=== PATIENT | female | born 1990 | race Caucasian/White ===

== ENCOUNTER 2016-12-02 14:03 | Emergency (ER) | payer OTHER ==
[2016-12-02] MEDS ORDERED: Ondansetron 4 MG/2 ML SDV IVPUSH ONE ×3 (14:44→20:17)
[2016-12-02] MEDS ORDERED: Sodium Chloride 0.9% 1,000 ML IV STA (14:44)
[2016-12-02] MEDS ORDERED: Sodium Chloride 0.9% 10 ML Syringe FLUSH PRN (14:44)
[2016-12-02] MEDS ORDERED: Lidocaine 1% 50 ML MDV INJECT ONE (14:51)
[2016-12-02] MEDS ORDERED: Sodium Chloride 0.9% 1,000 ML IV ONE (16:14)
--- NOTE | 2016-12-02 16:59 | EDM.PDOC ---
ED HPI GENERAL MEDICAL PROBLEM - General Chief Complaint: General Stated Complaint: CHILLS/NAUSEA Time Seen by Provider: 12/02/16 14:13 Source of Information: Reports: Patient History Limitations: Reports: No limitations - History of Present Illness INITIAL COMMENTS - FREE TEXT/NARRATIVE: The patient presents with an infected left index finger, nausea and vomiting. Over 1 week ago she removed a hang nail and developed some pain and redness after. That has increased and she was seen on Thursday at [facility] and a parynechia was drained and a culture was done that grew out staph that was susceptible to every antibiotic tested. She was started on Bactrim. Today she developed, fever, chills, nausea and vomiting. She has no chest pain, congestion, runny nose, cough, shortness of breath or abdominal pain. The finger is not better. Onset: gradual Duration: Week(s): Location: Reports: upper extremity, left (Index finger) Quality: Reports: Sharp Severity: moderate Improves with: Reports: None Worsens with: Reports: None Associated Symptoms: Reports: nausea/vomiting. 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: - Past Surgical History HEENT Surgical History: Reports: Oral surgery Female Surgical History: Reports: section Social & Family History - Family History Family Medical History: Noncontributory HEENT: Reports: None - Tobacco Use Smoking Status *Q: Never Smoker Second Hand Smoke Exposure: No - Recreational Drug Use Recreational Drug Use: No ED ROS GENERAL - Review of Systems Review Of Systems: See Below Constitutional: Reports: fever, chills HEENT: Reports: No symptoms Respiratory: Reports: No Symptoms Cardiovascular: Reports: No symptoms Endocrine: Reports: no symptoms GI/Abdominal: Reports: Nausea, Vomiting. Denies: Abdominal pain : Reports: no symptoms Musculoskeletal: Reports: no symptoms Skin: Reports: no symptoms Neurological: Reports: No Symptoms ED EXAM, GENERAL - Physical Exam Exam: See Below Exam Limited By: No limitations General Appearance: alert, no apparent distress Ears: normal external exam Nose: normal inspection Head: atraumatic, normocephalic Neck: normal inspection Respiratory/Chest: no respiratory distress, lungs clear, normal breath sounds Cardiovascular: regular rate, rhythm, no edema, no murmur GI/Abdominal: Soft, Non-Tender, No Organomegaly, No Mass Back Exam: normal inspection Extremities: other (Moderate edema and erythema to the base of the nail of the left index finger. There is moderate pain upon palpation.) ED I&D PROCEDURES - I&D Site: Left infex finger Skin prep: other (Chlorprep) Local anesthesia - Lidocaine (Xylocaine): 1% plain (and I attempted a ring block ) Area incised with: 11 blade Drainage: purulent Probed to break up loculations: Yes Complications: No Progress/Comments: I could not achieve optimal anaesthesia with a ring block and local anaesthetic so I did procedural sedation and analgesia. I used ketamine at 2mg/kg IV. I was able to sedate her enough to do the procedure. Course - Vital Signs Last Recorded V/S: Last Vital Signs Temp 98.6 F 12/02/16 14:10 Pulse 75 12/02/16 14:10 Resp 18 12/02/16 14:10 BP 127/63 12/02/16 14:10 Pulse Ox 99 12/02/16 14:10 - Orders/Labs/Meds Orders: Active Orders 24 hr Category Date Time Status Peripheral IV Care [RC] . DIRECTED Care 12/02/16 14:44 Active Fingers Second Digit Lt F1 [CR] Stat Exams 12/02/16 14:47 Taken CULTURE BLOOD [BC] Stat Lab 12/02/16 15:08 Received CULTURE BLOOD [BC] Stat Lab 12/02/16 15:16 Received Sodium Chloride 0.9% [Saline Flush] Med 12/02/16 14:44 Active 10 ml FLUSH ASDIRECTED PRN Blood Culture x2 Reflex Set [OM.PC] Stat Oth 12/02/16 14:44 Ordered ED Antiemetic Medication Reflex [OM.PC] Stat Oth 12/02/16 14:44 Ordered Peripheral IV Insertion Adult [OM.PC] Stat Oth 12/02/16 14:44 Ordered Medication Orders Sodium Chloride (Saline Flush) 10 ml FLUSH ASDIRECTED PRN PRN Reason: Keep Vein Open Last Admin: 12/02/16 15:12 Dose: 10 ml Labs: Laboratory Tests 12/02/16 12/02/16 12/02/16 Range/Units 15:08 15:08 15:08 WBC 5.57 (3.98-10.04) K/mm3 RBC 4.53 (3.98-5.22) M/mm3 Hgb 13.3 (11.2-15.7) gm/L Hct 39.1 (34.1-44.9) % MCV 86.3 (79.4-94.8) fl MCH 29.4 (25.6-32.2) pg MCHC 34.0 (32.2-35.5) g/dl RDW Std Deviation 39.8 (36.4-46.3) fL Plt Count 214 (182-369) K/mm3 MPV 11.3 (9.4-12.3) fl Neut % (Auto) 54.8 (34.0-71.1) % Lymph % (Auto) 33.0 (19.3-51.7) % [place] % (Auto) 7.7 (4.7-12.5) % Eos % (Auto) 3.9 (0.7-5.8) Baso % (Auto) 0.4 (0.1-1.2) % Neut # (Auto) 3.05 (1.56-6.13) K/mm3 Lymph # (Auto) 1.84 (1.18-3.74) K/mm3 [place]th # (Auto) 0.43 H (0.24-0.36) K/mm3 Eos # (Auto) 0.22 (0.04-0.36) K/mm3 Baso # (Auto) 0.02 (0.01-0.08) K/mm3 Sodium 136 (136-145) mEq/L Potassium 4.1 (3.5-5.1) mEq/L Chloride 105 (98-107) mEq/L Carbon Dioxide 22 (21-32) mEq/L Anion Gap 13.1 (5-15) BUN 16 (7-18) mg/dL Creatinine 1.0 (0.55-1.02) mg/dL Est Cr Clr Drug Dosing TNP Estimated GFR (MDRD) > 60 (>60) mL/min BUN/Creatinine Ratio 16.0 (14-18) Glucose 98 (74-106) mg/dL Calcium 8.7 (8.5-10.1) mg/dL Total Bilirubin 0.3 (0.2-1.0) mg/dL AST 19 (15-37) U/L ALT 17 (14-59) U/L Alkaline Phosphatase 94 (46-116) U/L C-Reactive Protein 1.2 H* (<1.0) mg/dL Total Protein 7.4 (6.4-8.2) g/dl Albumin 3.7 (3.4-5.0) g/dl Globulin 3.7 gm/dL Albumin/Globulin Ratio 1.0 (1-2) HCG, Qual Negative (NEGATIVE) Meds: Medications Generic Name Dose Route Start Last Admin Trade Name Frejayde PRN Reason Stop Dose Admin Sodium Chloride 10 ml 12/02/16 14:44 12/02/16 15:12 Saline Flush FLUSH 10 ml ASDIRECTED PRN Administration Keep Vein Open Discontinued Medications Generic Name Dose Route Start Last Admin Trade Name Freq PRN Reason Stop Dose Admin Hydromorphone HCl 1 mg 12/02/16 17:55 12/02/16 18:01 Dilaudid IVPUSH 12/02/16 17:56 1 mg ONETIME ONE Administration Sodium Chloride 1,000 mls @ 1,000 mls/hr 12/02/16 14:44 12/02/16 15:11 Normal Saline IV 12/02/16 15:43 1,000 mls/hr .BOLUS STA Administration Sodium Chloride 1,000 mls @ 1,000 mls/hr 12/02/16 16:14 12/02/16 16:24 Normal Saline IV 12/02/16 17:13 1,000 mls/hr ONETIME ONE Administration Ceftriaxone Sodium 1 gm/ 100 mls @ 200 mls/hr 12/02/16 17:33 12/02/16 18:35 Sodium Chloride IV 12/02/16 18:02 200 mls/hr ONETIME ONE Administration Ketamine HCl 220 mg 12/02/16 18:36 12/02/16 19:00 Ketalar IV 12/02/16 18:37 220 mg ONETIME ONE Administration Lidocaine HCl 50 ml 12/02/16 14:51 12/02/16 15:12 Xylocaine 1% INJECT 12/02/16 14:52 50 ml ONETIME ONE Administration Ondansetron HCl 4 mg 12/02/16 14:44 12/02/16 15:11 Zofran IVPUSH 12/02/16 14:45 4 mg ONETIME ONE Administration Ondansetron HCl 4 mg 12/02/16 18:35 12/02/16 18:54 Zofran IVPUSH 12/02/16 18:36 4 mg ONETIME ONE Administration - Re-Assessments/Exams Free Text/Narrative Re-Assessment/Exam: 12/02/16 19:30 I ordered an IV NS 1L bolus, zofran 4mg IV, labs, blood cultures, rocephin and an x-ray. Her x-ray does not show any osteomyolitis. Her WBC was normal. Her CRP was slightly elevated. I could not get her finger anaesthetized enough to do the procedure so I used 220mg of ketamine to sedate her. She tolerated the procedure well and there were no complications. She did start her control pills yesterday and she is taking the antibiotic. This could be upsetting her stomach. Culture and susceptibility from [place] showed staph aureus susceptible to the bactrim she is on. I will keep her on that and give her some zofran. She is waking up now and she is a little nauseated. I will give her some reglan 10mg IV. I will have her follow up with Dr Sauceda. I gave him a call to let him know she is going to follow up. Departure - Departure Time of Disposition: 19:40 Disposition: Home, Self-Care 01 Condition: good Clinical Impression: Paronychia of finger of left hand - Discharge Information Prescriptions: Ondansetron [Zofran ODT] 4 mg PO Q6H PRN #20 tab.dis PRN Reason: Nausea/Vomiting Referrals: Je Sauceda MD [Physician] - (Call tomorrow and make an appointment) Forms: ED Department Discharge Additional Instructions: Soak your finger in warm soapy water 2 times per day and apply antibiotic ointment after. Take the antibiotics until gone. Take the zofran every 6 hours as needed for nausea and vomiting. Drink plenty of fluids. Please return if you are worse. 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 Call his office tomorrow and let them know he wants to see you this week. - My Orders Last 24 Hours: My Active Orders 12/02/16 14:44 Peripheral IV Care [RC] . DIRECTED Sodium Chloride 0.9% [Saline Flush] 10 ml FLUSH ASDIRECTED PRN Blood Culture x2 Reflex Set [OM.PC] Stat ED Antiemetic Medication Reflex [OM.PC] Stat Peripheral IV Insertion Adult [OM.PC] Stat 12/02/16 14:47 Fingers Second Digit Lt F1 [CR] Stat 12/02/16 15:08 CULTURE BLOOD [BC] Stat 12/02/16 15:16 CULTURE BLOOD [BC] Stat - Assessment/Plan Last 24 Hours: My Active Orders 12/02/16 14:44 Peripheral IV Care [RC] . DIRECTED Sodium Chloride 0.9% [Saline Flush] 10 ml FLUSH ASDIRECTED PRN Blood Culture x2 Reflex Set [OM.PC] Stat ED Antiemetic Medication Reflex [OM.PC] Stat Peripheral IV Insertion Adult [OM.PC] Stat 12/02/16 14:47 Fingers Second Digit Lt F1 [CR] Stat 12/02/16 15:08 CULTURE BLOOD [BC] Stat 12/02/16 15:16 CULTURE BLOOD [BC] Stat
[2016-12-02] MEDS ORDERED: cefTRIAXone 1 GM in Sodium Chloride 0.9% 100 ML IV ONE (17:33)
[2016-12-02] MEDS ORDERED: HYDROmorphone 1 MG/ML Syringe IVPUSH ONE (17:55)
[2016-12-02] MEDS ORDERED: Ketamine 500 mg/10 ML MDV IV ONE (18:36)
[2016-12-02] MEDS ORDERED: Metoclopramide 10 MG/2 ML SDV IVPUSH ONE ×2 (19:39→21:37)
[2016-12-02 22:16] VITALS: BP 109/61
--- NOTE | 2016-12-03 08:28 | CR ---
Left second finger: Four portable views centered to the left second finger were obtained. Comparison: No previous study. Joint spaces are maintained. No focal erosions are identified. No fracture or other bony abnormality is seen. Mild soft tissue swelling appears to be present. Impression: 1. Mild soft tissue swelling. No bony abnormality is identified on left second finger exam. Diagnostic code #2
== END 2016-12-02 22:10 | disposition home or self-care (01) ==
LOC: SUPCPDRO 14:03 → JD.ED 14:03
DX: L03.012 Cellulitis of left finger (principal)
CPT/HCPCS: 10060; 36415; 64450; 73140; 80053; 84703; 85025; 86140; 87040; 96361; 96365; 96375; 96376; 99284; A9270; J0696; J1170; J2405; J2765; J7030; J7040; J7050

== ENCOUNTER 2018-04-12 16:53 | Inpatient (IN) | payer OTHER ==
[2018-04-13] MEDS ORDERED: Sodium Chloride 0.9% 10 ML Syringe FLUSH PRN (05:30)
[2018-04-13] MEDS ORDERED: ceFAZolin 2 GM in Premix Bag 1 BAG IV ONE (06:00)
[2018-04-13] MEDS ORDERED: Metoclopramide 10 MG/2 ML SDV IVPUSH ONE (06:00)
[2018-04-13] MEDS ORDERED: Citric Acid/Sodium Citrate Solution 30 ML Cup PO ONE (06:00)
[2018-04-13] MEDS: Lactated Ringers 1,000 ML IV SCH ×2 (06:15→07:06)
[2018-04-13] MEDS ORDERED: Ondansetron 4 MG/2 ML SDV ONE (06:56)
[2018-04-13] MEDS ORDERED: Ketorolac 30 MG/ML SDV ONE (06:56)
[2018-04-13] MEDS ORDERED: Lactated Ringers 2,000 ML ONE (06:56)
[2018-04-13] MEDS ORDERED: Phenylephrine 1% 10 MG/ML SDV ONE (06:56)
[2018-04-13] MEDS ORDERED: ceFAZolin 1 GM Vial ONE (06:56)
[2018-04-13] MEDS ORDERED: Oxytocin 10 Units/1 ML SDV ONE (06:56)
[2018-04-13] MEDS ORDERED: Morphine PF 10 MG/10 ML SDV ONE (06:56)
[2018-04-13] MEDS ORDERED: Oxytocin/Lactated Ringers 10 UNIT/1,000 ML BAG IV SCH (07:00)
--- NOTE | 2018-04-13 07:19 | PCM.PREANE ---
Preanesthetic Assessment - Anesthesia/Transfusion/Family Hx Anesthesia History: Prior Anesthesia Reaction Type of Anesthesia Reaction: Excessive Nausea/Vomiting Family History of Anesthesia Reaction: No Transfusion History: No Prior Transfusion(s) Intubation History: Unknown - Review of Systems General: No Symptoms Pulmonary: No Symptoms Cardiovascular: No Symptoms Gastrointestinal: No Symptoms Neurological: No Symptoms Other: Reports: None, Sinus Problem (seasonal allergies) - Physical Assessment NPO Status Date: 04/12/18 NPO Status Time: 20:30 Pulse: 71 O2 Sat by Pulse Oximetry: 99 Respiratory Rate: 17 Blood Pressure: 129/67 Temperature: 36.8 C Vital Signs: Last Vital Signs Temp 36.8 C 04/13/18 05:30 Pulse 71 04/13/18 05:30 Resp 17 04/13/18 05:30 BP 129/67 04/13/18 05:30 Pulse Ox 99 04/13/18 05:30 Height: 1.78 m Weight: 108.499 kg ASA Class: 2 Mental Status: Alert & Oriented x3 Airway Class: Mallampati = 2 Dentition: Reports: Normal Dentition, Caries Thyro-Mental Finger Breadths: 3 Mouth Opening Finger Breadths: 3 ROM/Head Extension: Full Lungs: Clear to Auscultation, Normal Respiratory Effort Cardiovascular: Regular Rate, Regular Rhythm, No Murmurs - Lab Values: Laboratory Last Values WBC 10.21 K/mm3 (3.98-10.04) H 04/13/18 06:27 RBC 3.65 M/mm3 (3.98-5.22) L 04/13/18 06:27 Hgb 11.4 gm/L (11.2-15.7) 04/13/18 06:27 Hct 33.5 % (34.1-44.9) L 04/13/18 06:27 MCV 91.8 fl (79.4-94.8) 04/13/18 06:27 MCH 31.2 pg (25.6-32.2) 04/13/18 06:27 MCHC 34.0 g/dl (32.2-35.5) 04/13/18 06:27 RDW Std Deviation 42.9 fL (36.4-46.3) 04/13/18 06:27 Plt Count 155 K/mm3 (182-369) L 04/13/18 06:27 MPV 11.5 fl (9.4-12.3) 04/13/18 06:27 Neut % (Auto) 71.6 % (34.0-71.1) H 04/13/18 06:27 Lymph % (Auto) 17.8 % (19.3-51.7) L 04/13/18 06:27 [place] % (Auto) 9.0 % (4.7-12.5) 04/13/18 06:27 Eos % (Auto) 1.2 (0.7-5.8) 04/13/18 06:27 Baso % (Auto) 0.1 % (0.1-1.2) 04/13/18 06:27 Neut # (Auto) 7.31 K/mm3 (1.56-6.13) H 04/13/18 06:27 Lymph # (Auto) 1.82 K/mm3 (1.18-3.74) 04/13/18 06:27 [place] # (Auto) 0.92 K/mm3 (0.24-0.36) H 04/13/18 06:27 Eos # (Auto) 0.12 K/mm3 (0.04-0.36) 04/13/18 06:27 Baso # (Auto) 0.01 K/mm3 (0.01-0.08) 04/13/18 06:27 Above labs reviewed and noted and within acceptable ranges to proceed with repeat . - Allergies Allergies/Adverse Reactions: Allergies Allergy/AdvReac Type Severity Reaction Status Date / Time ENVIROMENTAL Allergy Mild Sneezing Uncoded 04/13/18 06:09 pet dander Allergy Hives Uncoded 04/13/18 06:10 - Anesthesia Plan Pre-Op Medication Ordered: None - Acknowledgements Anesthesia Type Planned: Spinal Pt an Appropriate Candidate for the Planned Anesthesia: Yes Alternatives and Risks of Anesthesia Discussed w Pt/Guardian: Yes Pt/Guardian Understands and Agrees with Anesthesia Plan: Yes PreAnesthesia Questionnaire - Past Health History Medical/Surgical History: Denies Medical/Surgical History HEENT History: Reports: Other (See Below) Other HEENT History: areli bullosa Cardiovascular History: Reports: None 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 surgery on left index finger in 2018. - Infectious Disease History Infectious Disease History: Reports: MRSA - Past Surgical History HEENT Surgical History: Reports: Oral Surgery Female Surgical History: Reports: Section - SUBSTANCE USE Smoking Status *Q: Never Smoker Recreational Drug Use History: No - HOME MEDS Home Medications: Home Meds Cetirizine [ZyrTEC] 12/02/16 [History] Ondansetron [Zofran ODT] 4 mg PO Q6H PRN #20 tab.dis 12/02/16 [Rx] Sulfamethoxazole/Trimethoprim [Bactrim Ds Tablet] 12/02/16 [History] - CURRENT (IN HOUSE) MEDS Current Meds: Current Medications Lactated Ringer's (Ringers, Lactated) 1,000 mls @ 125 mls/hr IV ASDIRECTED SAIDA Last Admin: 04/13/18 07:06 Dose: 999 mls/hr Oxytocin/Lactated Ringer's (Pitocin In Lr 10 Units/1,000 Ml) 10 unit in 1,000 mls @ 100 mls/hr IV ASDIRECTED SAIDA; Protocol Sodium Chloride (Saline Flush) 10 ml FLUSH ASDIRECTED PRN PRN Reason: Keep Vein Open Discontinued Medications Cefazolin Sodium (Ancef) Confirm Administered Dose 2 gm .ROUTE .STK-MED ONE Stop: 04/13/18 06:57 Citric Acid/Sodium Citrate (Bicitra Solution) 30 ml PO ONETIME ONE Stop: 04/13/18 06:01 Last Admin: 04/13/18 07:06 Dose: 30 ml Cefazolin Sodium/Dextrose 2 gm (/ Premix) 50 mls @ 100 mls/hr IV ONETIME ONE Stop: 04/13/18 06:29 Lactated Ringer's (Ringers, Lactated) Confirm Administered Dose 2,000 mls @ as directed .ROUTE .STK-MED ONE Stop: 04/13/18 06:57 Ketorolac Tromethamine (Toradol) Confirm Administered Dose 30 mg .ROUTE .STK- MED ONE Stop: 04/13/18 06:57 Metoclopramide HCl (Reglan) 10 mg IVPUSH ONETIME ONE Stop: 04/13/18 06:01 Last Admin: 04/13/18 07:06 Dose: 10 mg Morphine Sulfate (Duramorph Pf) Confirm Administered Dose 10 mg .ROUTE .STK-MED ONE Stop: 04/13/18 06:57 Ondansetron HCl (Zofran) Confirm Administered Dose 4 mg .ROUTE .STK-MED ONE Stop: 04/13/18 06:57 Oxytocin (Pitocin) Confirm Administered Dose 10 unit .ROUTE .STK-MED ONE Stop: 04/13/18 06:57 Phenylephrine HCl (Ehsan-Synephrine) Confirm Administered Dose 10 mg .ROUTE .STK- MED ONE Stop: 04/13/18 06:57
--- NOTE | 2018-04-13 07:26 | PCM.OPNOTE ---
- General Post-Op/Procedure Note Date of Surgery/Procedure: 04/13/18 Operative Procedure(s): Repeat low transverse Findings: Moderate amounts of scar tissue between the rectus and fascia. Several filmy adhesions between the uterine surface and anterior abdominal wall. Baby girl in a vertex presentation. APGARS of 8 & 9. Weight of 6 lbs 7 oz. Pre Op Diagnosis: 40 weeks gestation. History of Post-Op Diagnosis: S/p RLTCS Anesthesia Technique: Spinal Primary Surgeon: Fang Murphy Secondary Surgeon: Brandie Ashby Anesthesia Provider: Shahrzad Moreno Reason Ecd Was Necessary: Speed and safety of procedure. Pathology: Cord blood collected. Placenta discarded. Fluid Replacement, Intraop: 800 Output, Urine Amount: 150 EBL in mLs: 600 Complications: None Condition: Good Free Text/Narrative:: The risks, benefits, indications, potential complications, and alternatives were explained to the patient and informed consent obtained. After induction of anesthesia, the patient was placed in a supine position and then draped and prepped in the usual sterile manner. A Pfannenstiel incision was made and carried down through the subcutaneous tissue to the fascia. Fascial incision was made and extended transversely. The fascia was from the underlying rectus tissue superiorly and inferiorly. The peritoneum was identified and entered. Peritoneal incision was extended longitudinally. The utero-vesical peritoneal reflection was incised transversely and the bladder flap was bluntly freed from the lower uterine segment. A low transverse uterine incision was made sharply with a scalpel and extended bluntly in a cephalocaudad direction. A baby girl was delivered from a vertex presentation with APGARS as above. After the umbilical cord was clamped and cut cord blood was obtained for evaluation. The placenta was removed intact and appeared normal. The uterus was exteriorized and cleared of clots. The uterine outline, tubes and ovaries appeared normal. The uterine incision was closed with running locked sutures of 0 Vicryl. Hemostasis was obtained with a second imbricating layer of 0 vicryl. The uterus was then placed back into the abdomen. The infracolic gutters were cleared of blood clots. The fascia was then reapproximated with running sutures of 0 Vicryl. The sucutaneous tissue was irrigated with sterile warm normal saline, hemostasis obtained with cautery. This layer was also closed with a running 0 vicryl. The skin was reapproximated with running Subcuticular 4-0 monocryl sutures. Instrument, sponge, and needle counts were correct prior the abdominal closure and at the conclusion of the case.
[2018-04-13] MEDS ORDERED: Lidocaine 1% 2 ML ONE ×2 (07:51)
[2018-04-13] MEDS ORDERED: Bupivacaine 0.75%/D5W 2 ML Amp ONE (07:51)
[2018-04-13] MEDS ORDERED: Dexamethasone 4 MG/ML SDV ONE (08:02)
[2018-04-13] MEDS ORDERED: diphenhydrAMINE 50 MG/ML SDV ONE (08:02)
[2018-04-13] MEDS: Scopolamine 1.5 MG Transdermal Patch TRDERM ONE ×2 (08:04→11:03)
[2018-04-13] MEDS ORDERED: Ondansetron 4 MG/2 ML SDV IVPUSH PRN (08:07)
[2018-04-13] MEDS ORDERED: Haloperidol Lactate 5 MG/ML SDV IVPUSH PRN (08:07)
[2018-04-13] MEDS ORDERED: Meperidine 50 MG/ML Vial IVPUSH PRN (08:07)
[2018-04-13] MEDS ORDERED: fentaNYL 100 MCG/2 ML SDV IVPUSH PRN (08:07)
[2018-04-13] MEDS ORDERED: ePHEDrine 50 MG/ML SDV IVPUSH PRN ×2 (08:07→10:21)
[2018-04-13] MEDS ORDERED: HYDROmorphone 0.5 MG/0.5 ML Syringe IVPUSH PRN (08:09)
[2018-04-13] MEDS ORDERED: Meperidine PF 50 MG/ML Syringe ONE (08:13)
[2018-04-13] MEDS ORDERED: Phenylephrine 1 MG in Sodium Chloride 0.9% 10 ML IV SCH (08:15)
--- NOTE | 2018-04-13 08:48 | PCM.POSTAN ---
POST ANESTHESIA ASSESSMENT - MENTAL STATUS Mental Status: Alert - VITAL SIGNS Pulse Rate: 57 SaO2: 97 Resp Rate: 13 Blood Pressure: 113/65 Temperature: 36.9 C - RESPIRATORY Respiratory Status: Respiratory Rate WNL, Airway Patent, O2 Saturation Stable - CARDIOVASCULAR CV Status: Pulse Rate WNL, Blood Pressure Stable - GASTROINTESTINAL GI Status: No Symptoms - POST OP HYDRATION Hydration Status: Adequate & Stable
[2018-04-13] MEDS ORDERED: Lanolin 100% Cream 7 GM Tube TOP PRN (10:21)
[2018-04-13] MEDS ORDERED: Docusate Sodium 100 MG Cap PO PRN (10:21)
[2018-04-13] MEDS ORDERED: Acetaminophen/oxyCODONE 325-5 MG Tab PO PRN (10:21)
[2018-04-13] MEDS ORDERED: diphenhydrAMINE 50 MG/ML SDV IVPUSH PRN (10:21)
[2018-04-13] MEDS ORDERED: Naloxone 0.4 MG/ML SDV IVPUSH PRN (10:21)
[2018-04-13] MEDS: Dextrose 5%-Lactated Ringers 1,000 ML IV SCH (12:13)
[2018-04-13] MEDS: Ketorolac 30 MG/ML SDV IVPUSH SCH ×2 (15:00→21:17)
[2018-04-14] MEDS: Ketorolac 30 MG/ML SDV IVPUSH SCH (03:41)
--- NOTE | 2018-04-14 07:16 | PCM.PNPP ---
- General Info Date of Service: 04/14/18 Functional Status: Reports: Pain Controlled, Tolerating Diet, Ambulating - Review of Systems General: Reports: No Symptoms Pulmonary: Reports: No Symptoms Cardiovascular: Reports: No Symptoms Gastrointestinal: Reports: No Symptoms Genitourinary: Reports: No Symptoms Musculoskeletal: Reports: No Symptoms - Patient Data Vital Signs - Most Recent: Last Vital Signs Temp 36.7 C 04/14/18 03:46 Pulse 69 04/14/18 03:46 Resp 18 04/14/18 06:54 BP 127/62 04/14/18 03:46 Pulse Ox 97 04/14/18 06:54 Weight - Most Recent: 108.499 kg I&O - Last 24 Hours: Intake & Output 04/13/18 04/14/18 04/14/18 22:59 06:59 14:59 Intake Total 1240 Output Total 1100 1450 Balance 140 -1450 Lab Results - Last 24 Hours: Laboratory Results - last 24 hr 04/13/18 04/13/18 04/13/18 Range/Units 06:10 06:27 06:27 WBC (3.98-10.04) K/mm3 RBC (3.98-5.22) M/mm3 Hgb (11.2-15.7) gm/L Hct (34.1-44.9) % MCV (79.4-94.8) fl MCH (25.6-32.2) pg MCHC (32.2-35.5) g/dl RDW Std Deviation (36.4-46.3) fL Plt Count (182-369) K/mm3 MPV (9.4-12.3) fl RPR Non-reactive (NONREACTIVE) MRSA (PCR) Negative Blood Type O NEGATIVE Gel Antibody Screen Negative 04/14/18 Range/Units 05:58 WBC 10.97 H (3.98-10.04) K/mm3 RBC 3.10 L (3.98-5.22) M/mm3 Hgb 9.6 L (11.2-15.7) gm/L Hct 29.1 L (34.1-44.9) % MCV 93.9 (79.4-94.8) fl MCH 31.0 (25.6-32.2) pg MCHC 33.0 (32.2-35.5) g/dl RDW Std Deviation 44.5 (36.4-46.3) fL Plt Count 137 L (182-369) K/mm3 MPV 12.0 (9.4-12.3) fl RPR (NONREACTIVE) MRSA (PCR) Blood Type Gel Antibody Screen Med Orders - Current: Current Medications Diphenhydramine HCl (Benadryl) 25 mg IVPUSH Q6H PRN PRN Reason: Itching or Nausea Docusate Sodium (Colace) 100 mg PO Q12H PRN PRN Reason: Constipation Emollient Ointment (Lansinoh Hpa) 0 gm TOP ASDIRECTED PRN PRN Reason: Sore Nipples Last Admin: 04/13/18 15:57 Dose: 1 tube Ephedrine Sulfate (Ephedrine Sulfate) 5 mg IVPUSH SEECOMMENT PRN PRN Reason: Other Ibuprofen (Motrin) 600 mg PO Q6H PRN PRN Reason: mild pain or fever Naloxone HCl (Narcan) 0.1 mg IVPUSH SEECOMMENT PRN PRN Reason: Respiratory Depression Oxycodone/Acetaminophen (Percocet 325-5 Mg) 2 tab PO Q4H PRN PRN Reason: Pain (moderate 4-6) Discontinued Medications Bupivacaine HCl/Dextrose (Marcaine 0.75% Spinal) Confirm Administered Dose 2 ml .ROUTE .STK-MED ONE Stop: 04/13/18 07:52 Cefazolin Sodium (Ancef) Confirm Administered Dose 2 gm .ROUTE .STK-MED ONE Stop: 04/13/18 06:57 Citric Acid/Sodium Citrate (Bicitra Solution) 30 ml PO ONETIME ONE Stop: 04/13/18 06:01 Last Admin: 04/13/18 07:06 Dose: 30 ml Dexamethasone (Dexamethasone) Confirm Administered Dose 4 mg .ROUTE .STK-MED ONE Stop: 04/13/18 08:03 Diphenhydramine HCl (Benadryl) Confirm Administered Dose 50 mg .ROUTE .STK-MED ONE Stop: 04/13/18 08:03 Ephedrine Sulfate (Ephedrine Sulfate) 5 mg IVPUSH ASDIRECTED PRN PRN Reason: Hypotension Stop: 04/13/18 11:00 Fentanyl (Sublimaze) 50 mcg IVPUSH Q5M PRN PRN Reason: Pain Stop: 04/13/18 11:00 Haloperidol Lactate (Haldol) 1 mg IVPUSH ONETIME PRN PRN Reason: FOR PERSISTENT NAUSEA Stop: 04/13/18 11:00 Hydromorphone HCl (Dilaudid) 0.5 mg IVPUSH ONETIME PRN PRN Reason: Pain Stop: 04/13/18 11:00 Cefazolin Sodium/Dextrose 2 gm (/ Premix) 50 mls @ 100 mls/hr IV ONETIME ONE Stop: 04/13/18 06:29 Last Admin: 04/13/18 11:03 Dose: Not Given Lactated Ringer's (Ringers, Lactated) 1,000 mls @ 125 mls/hr IV ASDIRECTED [facility] Last Admin: 04/13/18 07:06 Dose: 999 mls/hr Oxytocin/Lactated Ringer's (Pitocin In Lr 10 Units/1,000 Ml) 10 unit in 1,000 mls @ 100 mls/hr IV ASDIRECTED [facility]; Protocol Lactated Ringer's (Ringers, Lactated) Confirm Administered Dose 2,000 mls @ as directed .ROUTE .STK-MED ONE Stop: 04/13/18 06:57 Lidocaine HCl (Xylocaine-Mpf 1%) Confirm Administered Dose 2 mls @ as directed .ROUTE .STK-MED ONE Stop: 04/13/18 07:52 Lidocaine HCl (Xylocaine-Mpf 1%) Confirm Administered Dose 2 mls @ as directed .ROUTE .STK-MED ONE Stop: 04/13/18 07:52 Phenylephrine HCl 1 mg/ Sodium (Chloride) 10.1 mls @ 1 mls/sec IV TITRATE [facility]; Protocol Stop: 04/13/18 11:00 Dextrose/Lactated Ringer's (Dextrose 5%-Lactated Ringers) 1,000 mls @ 125 mls/ hr IV ASDIRECTED [facility] Stop: 04/13/18 18:20 Last Admin: 04/13/18 12:13 Dose: 125 mls/hr Ketorolac Tromethamine (Toradol) Confirm Administered Dose 30 mg .ROUTE .STK- MED ONE Stop: 04/13/18 06:57 Ketorolac Tromethamine (Toradol) 30 mg IVPUSH Q6H [facility] Stop: 04/14/18 02:21 Last Admin: 04/14/18 03:41 Dose: 30 mg Meperidine HCl (Meperidine) 12.5 mg IVPUSH ONETIME PRN PRN Reason: shivering Stop: 04/13/18 11:00 Meperidine HCl (Demerol) Confirm Administered Dose 50 mg .ROUTE .STK-MED ONE Stop: 04/13/18 08:14 Metoclopramide HCl (Reglan) 10 mg IVPUSH ONETIME ONE Stop: 04/13/18 06:01 Last Admin: 04/13/18 07:06 Dose: 10 mg Miscellaneous Information (Remove Patch) 0 ea TRDERM ONETIME ONE Stop: 04/16/18 07:31 Morphine Sulfate (Duramorph Pf) Confirm Administered Dose 10 mg .ROUTE .STK-MED ONE Stop: 04/13/18 06:57 Ondansetron HCl (Zofran) Confirm Administered Dose 4 mg .ROUTE .STK-MED ONE Stop: 04/13/18 06:57 Ondansetron HCl (Zofran) 4 mg IVPUSH ONETIME PRN PRN Reason: Nausea/Vomiting Stop: 04/13/18 11:00 Oxytocin (Pitocin) Confirm Administered Dose 10 unit .ROUTE .STK-MED ONE Stop: 04/13/18 06:57 Phenylephrine HCl (Ehsan-Synephrine) Confirm Administered Dose 10 mg .ROUTE .STK- MED ONE Stop: 04/13/18 06:57 Scopolamine (Transderm-Scop) 1.5 mg TRDERM ONETIME ONE Stop: 04/13/18 07:20 Last Admin: 04/13/18 11:03 Dose: Not Given Sodium Chloride (Saline Flush) 10 ml FLUSH ASDIRECTED PRN PRN Reason: Keep Vein Open - Infant Interaction Infant Disposition, : in Room with Family Interaction: Holding Infant Infant Feeding: Breastfed Infant; Nursed Well Support Person: - Recovery Exam Fundal Tone: Firm Fundal Level: 2 Fingerbreadths Below Umbilicus Fundal Placement: Midline Lochia Amount: Small Lochia Color: Rubra/Red Perineum Description: Intact, Minimal Bruising/Swelling - Exam General: Alert, Oriented, Cooperative Lungs: Clear to Auscultation, Normal Respiratory Effort Cardiovascular: Regular Rate, Regular Rhythm GI/Abdominal Exam: Soft, Non-Tender Extremities: Normal Inspection Skin: Warm, Dry, Intact Wound/Incisions: Healing Well, No Drainage - Problem List & Annotations (1) 40 weeks gestation of SNOMED Code(s): 83659234 Code(s): Z3A.40 - 40 WEEKS GESTATION OF Status: Acute Current Visit: Yes (2) History of SNOMED Code(s): 192147352 Code(s): Z98.891 - HISTORY OF UTERINE SCAR FROM PREVIOUS SURGERY Status: Acute Current Visit: Yes (3) S/P repeat low transverse SNOMED Code(s): 920042157, 83803305, 992043371, 152480711, 470911555 Code(s): Z98.891 - HISTORY OF UTERINE SCAR FROM PREVIOUS SURGERY Status: Acute Current Visit: Yes (4) Rh negative state in antepartum period SNOMED Code(s): 533420612 Code(s): O09.899 - SUPERVISION OF OTHER HIGH RISK PREGNANCIES, UNSP TRIMESTER Status: Acute Current Visit: No - Problem List Review Problem List Initiated/Reviewed/Updated: Yes - My Orders Last 24 Hours: My Active Orders 04/13/18 07:00 Urinary Catheter Assessment [RC] ASDIRECTED 04/13/18 10:21 Activity as Tolerated [RC] .Routine Communication Order [RC] PER UNIT ROUTINE Communication Order [RC] PER UNIT ROUTINE Intake and Output [RC] Q4H May Shower [RC] PER UNIT ROUTINE Notify Provider Intake and Out [RC] ASDIRECTED RT Incentive Spirometry [RC] Q2HWA Acetaminophen/oxyCODONE [Percocet 325-5 MG] 2 tab PO Q4H PRN Docusate Sodium [Colace] 100 mg PO Q12H PRN Lanolin [Lansinoh HPA] See Dose Instructions TOP ASDIRECTED PRN Naloxone [Narcan] 0.1 mg IVPUSH SEECOMMENT PRN diphenhydrAMINE [Benadryl] 25 mg IVPUSH Q6H PRN ePHEDrine [ePHEDrine Sulfate] 5 mg IVPUSH SEECOMMENT PRN Assess Lochia [WOMSER] Per Unit Routine Assess Uterine Involution [WOMSER] Per Unit Routine Breast Pump [WOMSER] Per Unit Routine Heat Therapy [OM.PC] Per Unit Routine Peripheral IV Discontinue [OM.PC] Routine Sequential Compression Device [OM.PC] Per Unit Routine 04/13/18 Breakfast Regular Diet [DIET] 04/14/18 08:20 Ibuprofen [Motrin] 600 mg PO Q6H PRN 04/14/18 08:45 Urinary Catheter Removal [RC] Per Unit Routine - Assessment Assessment:: POD#1 from RLTCS at 40 0/7 wks - Plan Plan:: * Routine cares * Rhogam indicated, baby Rh positive * Encourage breast feeding * Discharge home in 1-2 days
[2018-04-14] MEDS ORDERED: Ibuprofen 600 MG Tab PO PRN (08:20)
--- NOTE | 2018-04-14 08:29 | PCM48HPAN ---
Post Anesthesia Note - EVALUATION WITHIN 48HRS OF ANESTHETIC Vital Signs in Normal Range: Yes Patient Participated in Evaluation: Yes Respiratory Function Stable: Yes Airway Patent: Yes Cardiovascular Function Stable: Yes Hydration Status Stable: Yes Pain Control Satisfactory: Yes Nausea and Vomiting Control Satisfactory: Yes Mental Status Recovered: Yes - COMMENTS/OBSERVATIONS Free Text/Narrative:: Patient denied any post anesthetic complications
--- NOTE | 2018-04-15 07:00 | PCM.PNPP ---
- General Info Date of Service: 04/15/18 Functional Status: Reports: Pain Controlled, Tolerating Diet, Ambulating, Urinating - Review of Systems General: Reports: No Symptoms Pulmonary: Reports: No Symptoms Cardiovascular: Reports: No Symptoms Gastrointestinal: Reports: No Symptoms Genitourinary: Reports: No Symptoms - Patient Data Vital Signs - Most Recent: Last Vital Signs Temp 36.6 C 04/15/18 03:07 Pulse 68 04/15/18 03:07 Resp 16 04/15/18 03:07 BP 129/86 04/15/18 03:07 Pulse Ox 97 04/15/18 03:07 Weight - Most Recent: 108.499 kg I&O - Last 24 Hours: Intake & Output 04/14/18 04/15/18 04/15/18 22:59 06:59 14:59 Intake Total 0 Balance 0 Lab Results - Last 24 Hours: Laboratory Results - last 24 hr 04/14/18 Range/Units 05:58 Blood Type Cancelled Gel Antibody Screen Cancelled Screen 1 ros/5 flds - neg RhIG Candidate? Yes Rhogam Indicated Cancelled Med Orders - Current: Current Medications Diphenhydramine HCl (Benadryl) 25 mg IVPUSH Q6H PRN PRN Reason: Itching or Nausea Docusate Sodium (Colace) 100 mg PO Q12H PRN PRN Reason: Constipation Emollient Ointment (Lansinoh Hpa) 0 gm TOP ASDIRECTED PRN PRN Reason: Sore Nipples Last Admin: 04/13/18 15:57 Dose: 1 tube Ephedrine Sulfate (Ephedrine Sulfate) 5 mg IVPUSH SEECOMMENT PRN PRN Reason: Other Ibuprofen (Motrin) 600 mg PO Q6H PRN PRN Reason: mild pain or fever Last Admin: 04/14/18 17:30 Dose: 600 mg Naloxone HCl (Narcan) 0.1 mg IVPUSH SEECOMMENT PRN PRN Reason: Respiratory Depression Oxycodone/Acetaminophen (Percocet 325-5 Mg) 2 tab PO Q4H PRN PRN Reason: Pain (moderate 4-6) Discontinued Medications Bupivacaine HCl/Dextrose (Marcaine 0.75% Spinal) Confirm Administered Dose 2 ml .ROUTE .STK-MED ONE Stop: 04/13/18 07:52 Cefazolin Sodium (Ancef) Confirm Administered Dose 2 gm .ROUTE .STK-MED ONE Stop: 04/13/18 06:57 Citric Acid/Sodium Citrate (Bicitra Solution) 30 ml PO ONETIME ONE Stop: 04/13/18 06:01 Last Admin: 04/13/18 07:06 Dose: 30 ml Dexamethasone (Dexamethasone) Confirm Administered Dose 4 mg .ROUTE .STK-MED ONE Stop: 04/13/18 08:03 Diphenhydramine HCl (Benadryl) Confirm Administered Dose 50 mg .ROUTE .STK-MED ONE Stop: 04/13/18 08:03 Ephedrine Sulfate (Ephedrine Sulfate) 5 mg IVPUSH ASDIRECTED PRN PRN Reason: Hypotension Stop: 04/13/18 11:00 Fentanyl (Sublimaze) 50 mcg IVPUSH Q5M PRN PRN Reason: Pain Stop: 04/13/18 11:00 Haloperidol Lactate (Haldol) 1 mg IVPUSH ONETIME PRN PRN Reason: FOR PERSISTENT NAUSEA Stop: 04/13/18 11:00 Hydromorphone HCl (Dilaudid) 0.5 mg IVPUSH ONETIME PRN PRN Reason: Pain Stop: 04/13/18 11:00 Cefazolin Sodium/Dextrose 2 gm (/ Premix) 50 mls @ 100 mls/hr IV ONETIME ONE Stop: 04/13/18 06:29 Last Admin: 04/13/18 11:03 Dose: Not Given Lactated Ringer's (Ringers, Lactated) 1,000 mls @ 125 mls/hr IV ASDIRECTED [facility] Last Admin: 04/13/18 07:06 Dose: 999 mls/hr Oxytocin/Lactated Ringer's (Pitocin In Lr 10 Units/1,000 Ml) 10 unit in 1,000 mls @ 100 mls/hr IV ASDIRECTED [facility]; Protocol Lactated Ringer's (Ringers, Lactated) Confirm Administered Dose 2,000 mls @ as directed .ROUTE .STK-MED ONE Stop: 04/13/18 06:57 Lidocaine HCl (Xylocaine-Mpf 1%) Confirm Administered Dose 2 mls @ as directed .ROUTE .STK-MED ONE Stop: 04/13/18 07:52 Lidocaine HCl (Xylocaine-Mpf 1%) Confirm Administered Dose 2 mls @ as directed .ROUTE .STK-MED ONE Stop: 04/13/18 07:52 Phenylephrine HCl 1 mg/ Sodium (Chloride) 10.1 mls @ 1 mls/sec IV TITRATE [facility]; Protocol Stop: 04/13/18 11:00 Dextrose/Lactated Ringer's (Dextrose 5%-Lactated Ringers) 1,000 mls @ 125 mls/ hr IV ASDIRECTED [facility] Stop: 04/13/18 18:20 Last Admin: 04/13/18 12:13 Dose: 125 mls/hr Ketorolac Tromethamine (Toradol) Confirm Administered Dose 30 mg .ROUTE .STK- MED ONE Stop: 04/13/18 06:57 Ketorolac Tromethamine (Toradol) 30 mg IVPUSH Q6H [facility] Stop: 04/14/18 02:21 Last Admin: 04/14/18 03:41 Dose: 30 mg Meperidine HCl (Meperidine) 12.5 mg IVPUSH ONETIME PRN PRN Reason: shivering Stop: 04/13/18 11:00 Meperidine HCl (Demerol) Confirm Administered Dose 50 mg .ROUTE .STK-MED ONE Stop: 04/13/18 08:14 Metoclopramide HCl (Reglan) 10 mg IVPUSH ONETIME ONE Stop: 04/13/18 06:01 Last Admin: 04/13/18 07:06 Dose: 10 mg Miscellaneous Information (Remove Patch) 0 ea TRDERM ONETIME ONE Stop: 04/16/18 07:31 Morphine Sulfate (Duramorph Pf) Confirm Administered Dose 10 mg .ROUTE .STK-MED ONE Stop: 04/13/18 06:57 Ondansetron HCl (Zofran) Confirm Administered Dose 4 mg .ROUTE .STK-MED ONE Stop: 04/13/18 06:57 Ondansetron HCl (Zofran) 4 mg IVPUSH ONETIME PRN PRN Reason: Nausea/Vomiting Stop: 04/13/18 11:00 Oxytocin (Pitocin) Confirm Administered Dose 10 unit .ROUTE .STK-MED ONE Stop: 04/13/18 06:57 Phenylephrine HCl (Ehsan-Synephrine) Confirm Administered Dose 10 mg .ROUTE .STK- MED ONE Stop: 04/13/18 06:57 Scopolamine (Transderm-Scop) 1.5 mg TRDERM ONETIME ONE Stop: 04/13/18 07:20 Last Admin: 04/13/18 11:03 Dose: Not Given Sodium Chloride (Saline Flush) 10 ml FLUSH ASDIRECTED PRN PRN Reason: Keep Vein Open - Interaction Disposition, : in Room with Family Interaction: Holding Infant Infant Feeding: Breastfed ; Nursed Well Support Person: - Recovery Exam Fundal Tone: Firm Fundal Level: 1 Fingerbreadths Below Umbilicus Fundal Placement: Midline Lochia Amount: Small Lochia Color: Rubra/Red Perineum Description: Intact, Minimal Bruising/Swelling Bladder Status: Voiding Urinary Elimination: Voided - Exam General: Alert, Oriented, Cooperative Lungs: Clear to Auscultation, Normal Respiratory Effort Cardiovascular: Regular Rate, Regular Rhythm GI/Abdominal Exam: Soft, Non-Tender Extremities: Normal Inspection Skin: Warm, Dry, Intact Wound/Incisions: Healing Well, No Drainage - Problem List & Annotations (1) 40 weeks gestation of SNOMED Code(s): 52347288 Code(s): Z3A.40 - 40 WEEKS GESTATION OF Status: Acute (2) History of SNOMED Code(s): 659873896 Code(s): Z98.891 - HISTORY OF UTERINE SCAR FROM PREVIOUS SURGERY Status: Acute (3) S/P repeat low transverse SNOMED Code(s): 917025937, 76394088, 213647303, 061805308, 725138170 Code(s): Z98.891 - HISTORY OF UTERINE SCAR FROM PREVIOUS SURGERY Status: Acute (4) Rh negative state in antepartum period SNOMED Code(s): 203424780 Code(s): O09.899 - SUPERVISION OF OTHER HIGH RISK PREGNANCIES, UNSP TRIMESTER Status: Acute - Problem List Review Problem List Initiated/Reviewed/Updated: Yes - My Orders Last 24 Hours: My Active Orders 04/14/18 08:20 Ibuprofen [Motrin] 600 mg PO Q6H PRN 04/15/18 06:59 Ready for Discharge [RC] PER UNIT ROUTINE - Assessment Assessment:: POD#2 from TCS at 40 0/7 wks - Plan Plan:: * Routine cares * Rhogam given * Encourage breast feeding * Discharge home today
[2018-04-15 14:29] VITALS: BP 121/77
--- NOTE | 2018-04-15 16:41 | PCM.DCSUM1 ---
Discharge Summary - Discharge Data Discharge Date: 04/15/18 Discharge Disposition: Home, Self-Care 01 Condition: Good - Discharge Diagnosis/Problem(s) (1) 40 weeks gestation of SNOMED Code(s): 12662256 ICD Code: Z3A.40 - 40 WEEKS GESTATION OF Status: Acute (2) History of SNOMED Code(s): 388388580 ICD Code: Z98.891 - HISTORY OF UTERINE SCAR FROM PREVIOUS SURGERY Status: Acute (3) S/P repeat low transverse SNOMED Code(s): 407272973, 98808796, 865756565, 864513548, 051312500 ICD Code: Z98.891 - HISTORY OF UTERINE SCAR FROM PREVIOUS SURGERY Status: Acute (4) Rh negative state in antepartum period SNOMED Code(s): 986272395 ICD Code: O09.899 - SUPERVISION OF OTHER HIGH RISK PREGNANCIES, UNSP TRIMESTER Status: Acute - Patient Summary/Data Operative Procedure(s) Performed: Repeat low transverse Complications: None Consults: None Recommended Follow-up Testing/Procedures: Follow up in 2 weeks for post op check Hospital Course: Patient is a 27 y/o at 40 0/7 wks who presented for planned RLTCS. Procedure was uncomplicated. See operative note. she did well and was discharged home on POD#2 - Patient Instructions Diet: Regular Diet as Tolerated Activity: No Lifting Over 10 Pounds Driving: Do Not Drive Showering/Bathing: May Shower, No Tub Bathing/Swimming Wound/Incision Care: Keep Operative Site/Wound Site Clean and Dry Notify Provider of: Fever, Increased Pain, Swelling and Redness, Drainage, Nausea and/or Vomiting - Discharge Plan *PRESCRIPTION DRUG MONITORING PROGRAM REVIEWED*: Yes (No patient with same name/ in system) *COPY OF PRESCRIPTION DRUG MONITORING REPORT IN PATIENT PAULINE: Not Applicable (No ) Prescriptions/Med Rec: Acetaminophen/oxyCODONE [Percocet 325-5 MG] 2 tab PO Q4H PRN #20 tablet PRN Reason: Pain (Moderate 4-6) Home Medications: Home Meds Vits #93/Iron Fum/FA [ Formula Tablet] 04/13/18 [History] Acetaminophen/oxyCODONE [Percocet 325-5 MG] 2 tab PO Q4H PRN #20 tablet [Rx] Docusate Sodium [Colace] 100 mg PO Q12H PRN cap 04/14/18 [Rx] Ibuprofen [Motrin] 600 mg PO Q6H PRN tablet 04/14/18 [Rx] Referrals: Fang Murphy MD [Physician] - (2 weeks for post op check ) - Discharge Summary/Plan Comment DC Time >30 min.: No - Patient Data Vitals - Most Recent: Last Vital Signs Temp 36.6 C 04/15/18 13:10 Pulse 77 04/15/18 13:09 Resp 14 04/15/18 13:09 BP 121/77 04/15/18 13:09 Pulse Ox 96 04/15/18 13:09 Weight - Most Recent: 108.499 kg I&O - Last 24 hours: Intake & Output 04/15/18 04/15/18 04/15/18 06:59 14:59 22:59 Intake Total 100 Balance 100 Med Orders - Current: Current Medications Discontinued Medications Bupivacaine HCl/Dextrose (Marcaine 0.75% Spinal) Confirm Administered Dose 2 ml .ROUTE .STK-MED ONE Stop: 04/13/18 07:52 Cefazolin Sodium (Ancef) Confirm Administered Dose 2 gm .ROUTE .STK-MED ONE Stop: 04/13/18 06:57 Citric Acid/Sodium Citrate (Bicitra Solution) 30 ml PO ONETIME ONE Stop: 04/13/18 06:01 Last Admin: 04/13/18 07:06 Dose: 30 ml Dexamethasone (Dexamethasone) Confirm Administered Dose 4 mg .ROUTE .STK-MED ONE Stop: 04/13/18 08:03 Diphenhydramine HCl (Benadryl) Confirm Administered Dose 50 mg .ROUTE .STK-MED ONE Stop: 04/13/18 08:03 Diphenhydramine HCl (Benadryl) 25 mg IVPUSH Q6H PRN PRN Reason: Itching or Nausea Docusate Sodium (Colace) 100 mg PO Q12H PRN PRN Reason: Constipation Last Admin: 04/15/18 07:01 Dose: 100 mg Emollient Ointment (Lansinoh Hpa) 0 gm TOP ASDIRECTED PRN PRN Reason: Sore Nipples Last Admin: 04/13/18 15:57 Dose: 1 tube Ephedrine Sulfate (Ephedrine Sulfate) 5 mg IVPUSH ASDIRECTED PRN PRN Reason: Hypotension Stop: 04/13/18 11:00 Ephedrine Sulfate (Ephedrine Sulfate) 5 mg IVPUSH SEECOMMENT PRN PRN Reason: Other Fentanyl (Sublimaze) 50 mcg IVPUSH Q5M PRN PRN Reason: Pain Stop: 04/13/18 11:00 Haloperidol Lactate (Haldol) 1 mg IVPUSH ONETIME PRN PRN Reason: FOR PERSISTENT NAUSEA Stop: 04/13/18 11:00 Hydromorphone HCl (Dilaudid) 0.5 mg IVPUSH ONETIME PRN PRN Reason: Pain Stop: 04/13/18 11:00 Cefazolin Sodium/Dextrose 2 gm (/ Premix) 50 mls @ 100 mls/hr IV ONETIME ONE Stop: 04/13/18 06:29 Last Admin: 04/13/18 11:03 Dose: Not Given Lactated Ringer's (Ringers, Lactated) 1,000 mls @ 125 mls/hr IV ASDIRECTED [facility] Last Admin: 04/13/18 07:06 Dose: 999 mls/hr Oxytocin/Lactated Ringer's (Pitocin In Lr 10 Units/1,000 Ml) 10 unit in 1,000 mls @ 100 mls/hr IV ASDIRECTED [facility]; Protocol Lactated Ringer's (Ringers, Lactated) Confirm Administered Dose 2,000 mls @ as directed .ROUTE .STK-MED ONE Stop: 04/13/18 06:57 Lidocaine HCl (Xylocaine-Mpf 1%) Confirm Administered Dose 2 mls @ as directed .ROUTE .STK-MED ONE Stop: 04/13/18 07:52 Lidocaine HCl (Xylocaine-Mpf 1%) Confirm Administered Dose 2 mls @ as directed .ROUTE .STK-MED ONE Stop: 04/13/18 07:52 Phenylephrine HCl 1 mg/ Sodium (Chloride) 10.1 mls @ 1 mls/sec IV TITRATE [facility]; Protocol Stop: 04/13/18 11:00 Dextrose/Lactated Ringer's (Dextrose 5%-Lactated Ringers) 1,000 mls @ 125 mls/ hr IV ASDIRECTED [facility] Stop: 04/13/18 18:20 Last Admin: 04/13/18 12:13 Dose: 125 mls/hr Ibuprofen (Motrin) 600 mg PO Q6H PRN PRN Reason: mild pain or fever Last Admin: 04/14/18 17:30 Dose: 600 mg Ketorolac Tromethamine (Toradol) Confirm Administered Dose 30 mg .ROUTE .STK- MED ONE Stop: 04/13/18 06:57 Ketorolac Tromethamine (Toradol) 30 mg IVPUSH Q6H [facility] Stop: 04/14/18 02:21 Last Admin: 04/14/18 03:41 Dose: 30 mg Meperidine HCl (Meperidine) 12.5 mg IVPUSH ONETIME PRN PRN Reason: shivering Stop: 04/13/18 11:00 Meperidine HCl (Demerol) Confirm Administered Dose 50 mg .ROUTE .STK-MED ONE Stop: 04/13/18 08:14 Metoclopramide HCl (Reglan) 10 mg IVPUSH ONETIME ONE Stop: 04/13/18 06:01 Last Admin: 04/13/18 07:06 Dose: 10 mg Miscellaneous Information (Remove Patch) 0 ea TRDERM ONETIME ONE Stop: 04/16/18 07:31 Morphine Sulfate (Duramorph Pf) Confirm Administered Dose 10 mg .ROUTE .STK-MED ONE Stop: 04/13/18 06:57 Naloxone HCl (Narcan) 0.1 mg IVPUSH SEECOMMENT PRN PRN Reason: Respiratory Depression Ondansetron HCl (Zofran) Confirm Administered Dose 4 mg .ROUTE .STK-MED ONE Stop: 04/13/18 06:57 Ondansetron HCl (Zofran) 4 mg IVPUSH ONETIME PRN PRN Reason: Nausea/Vomiting Stop: 04/13/18 11:00 Oxycodone/Acetaminophen (Percocet 325-5 Mg) 2 tab PO Q4H PRN PRN Reason: Pain (moderate 4-6) Oxytocin (Pitocin) Confirm Administered Dose 10 unit .ROUTE .STK-MED ONE Stop: 04/13/18 06:57 Phenylephrine HCl (Ehsan-Synephrine) Confirm Administered Dose 10 mg .ROUTE .STK- MED ONE Stop: 04/13/18 06:57 Scopolamine (Transderm-Scop) 1.5 mg TRDERM ONETIME ONE Stop: 04/13/18 07:20 Last Admin: 04/13/18 11:03 Dose: Not Given Sodium Chloride (Saline Flush) 10 ml FLUSH ASDIRECTED PRN PRN Reason: Keep Vein Open
== END 2018-04-15 13:40 | disposition home or self-care (01) | DRG 766 ==
LOC: JD.OB 04-13 05:33
PROVIDERS: ADMIT Obstetrics & Gynecology; ATTEND Obstetrics & Gynecology
PROC: 10D00Z1 Extraction of Products of Conception, Low, Open Approach (ICD-10-PCS; principal; 2018-04-13)
PROC: 6A550ZT Pheresis of Cord Blood Stem Cells, Single (ICD-10-PCS; principal; 2018-04-13)
PROC: 3E0234Z Introduction of Serum, Toxoid and Vaccine into Muscle, Percutaneous Approach (ICD-10-PCS; 2018-04-14)
DX: O34.211 Maternal care for low transverse scar from previous cesarean delivery (principal); N85.8 Other specified noninflammatory disorders of uterus; Z3A.40 40 weeks gestation of pregnancy; Z37.0 Single live birth; Z91.048 Other nonmedicinal substance allergy status; Z86.14 Personal history of Methicillin resistant Staphylococcus aureus infection; O26.893 Other specified pregnancy related conditions, third trimester; Z67.91 Unspecified blood type, Rh negative
CPT/HCPCS: 36415; 59020; 59025; 85025; 85027; 85461; 86592; 86850; 86900; 86901; 87070; 87641; 94762; A9270-GY; J0690; J1100; J1200; J1885; J2001; J2175; J2270; J2370; J2405; J2590; J2765; J2790; J7042; J7120

== ENCOUNTER 2023-06-04 02:05 | Inpatient (IN) | payer OTHER ==
[~2023-06-04 02:05] MED LIST: Lactated Ringers 1,000 ML IV SCH; Sodium Chloride 0.9% 10 ML Syringe FLUSH PRN
[2023-06-04] MEDS ORDERED: Metoclopramide 10 MG/2 ML SDV IM ONE (06:18)
[2023-06-04] MEDS ORDERED: Citric Acid/Sodium Citrate Solution 30 ML Cup PO ONE ×3 (06:18→07:15)
[2023-06-04 06:28] LABS: BASOPHILS PERCENT AUTO 0.1 % (0.0-1.0); EOSINOPHILS PERCENT AUTO 0.3 % (0.0-6.0); HEMATOCRIT 32.9 % (37.0-47.0); HEMOGLOBIN 11.2 gm/dl (12.0-16.0); IMMATURE GRAN ABSOLUTE AUTO 0.04 K/mm3 (0.00-0.05); IMMATURE GRAN PERCENT AUTO 0.5 % (0.0-0.4); LYMPHOCYTES ABSOLUTE AUTO 1.5 K/mm3 (1.0-4.8); LYMPHOCYTES PERCENT AUTO 17.5 % (24.0-44.0); MEAN CORPUSCULAR HEMOGLOBIN 30.3 pg (28.0-32.0); MEAN CORPUSCULAR VOLUME 88.9 fl (83.0-99.0); MEAN PLATELET VOLUME 11.3 fl (9.4-12.3); MONOCYTES ABSOLUTE AUTO 0.8 K/mm3 (0.0-0.8); MONOCYTES PERCENT AUTO 9.2 % (0.0-8.0); NEUTROPHILS ABSOLUTE AUTO 6.2 K/mm3 (1.8-7.7); NEUTROPHILS PERCENT AUTO 72.4 % (41.0-71.0); PLATELET COUNT,PLT 158 K/mm3 (150-400); WHITE BLOOD CELL COUNT,WBC 8.58 K/mm3 (3.9-11.3)
[2023-06-04] MEDS ORDERED: Lactated Ringers 1,000 ML IV SCH (06:30)
[2023-06-04] MEDS ORDERED: Morphine PF 10 MG/10 ML SDV ONE (06:58)
[2023-06-04] MEDS ORDERED: Oxytocin 10 Units/1 ML SDV ONE (06:58)
[2023-06-04] MEDS ORDERED: Ondansetron 4 MG/2 ML SDV ONE (06:58)
[2023-06-04] MEDS ORDERED: Ketorolac 30 MG/ML SDV ONE (06:58)
[2023-06-04] MEDS ORDERED: Lactated Ringers 2,000 ML ONE (06:58)
[2023-06-04] MEDS ORDERED: Metoclopramide 10 MG/2 ML SDV IVPUSH ONE ×2 (07:00→07:15)
[2023-06-04] MEDS ORDERED: ceFAZolin 2 GM in Sodium Chloride 0.9% 50 ML IV ONE ×2 (07:00)
[2023-06-04] MEDS: Lactated Ringers 1,000 ML IV SCH ×2 (07:00→07:21)
[2023-06-04] MEDS ORDERED: ceFAZolin 2 GM Vial ONE (07:02)
[2023-06-04] MEDS ORDERED: Scopolamine 1.5 MG Transdermal Patch TOP ONE (07:13)
[2023-06-04] MEDS ORDERED: ePHEDrine 50 MG/ML SDV ONE (07:36)
[2023-06-04] MEDS ORDERED: Metoclopramide 10 MG/2 ML SDV ONE (07:38)
[2023-06-04] MEDS ORDERED: fentaNYL 100 MCG/2 ML SDV IVPUSH PRN (07:53)
[2023-06-04] MEDS ORDERED: Ondansetron 4 MG/2 ML SDV IVPUSH PRN (07:53)
[2023-06-04] MEDS ORDERED: diphenhydrAMINE 50 MG/ML SDV IVPUSH PRN ×2 (07:53→10:18)
[2023-06-04] MEDS ORDERED: Meperidine 50 MG/ML Vial IVPUSH PRN (07:53)
[2023-06-04] MEDS ORDERED: Naloxone 0.4 MG/ML SDV IVPUSH PRN (10:18)
[2023-06-04] MEDS ORDERED: Acetaminophen/oxyCODONE 325-5 MG Tab PO PRN ×2 (10:18)
[2023-06-04] MEDS ORDERED: Dextrose 5%-Lactated Ringers 1,000 ML IV SCH (10:18)
[2023-06-04] MEDS ORDERED: Ondansetron 4 MG/2 ML SDV IV PRN (10:18)
[2023-06-04] MEDS: Ketorolac 30 MG/ML SDV IVPUSH SCH ×2 (13:57→20:22)
[2023-06-05] MEDS: Ketorolac 30 MG/ML SDV IVPUSH SCH (02:38)
[2023-06-05 05:42] LABS: HEMATOCRIT 29.2 % (37.0-47.0); MEAN CORPUSCULAR HEMOGLOBIN 31.4 pg (28.0-32.0); MEAN CORPUSCULAR HGB CONC 34.2 g/dl (32.0-36.0); MEAN CORPUSCULAR VOLUME 91.8 fl (83.0-99.0); MEAN PLATELET VOLUME 11.7 fl (9.4-12.3); PLATELET COUNT,PLT 149 K/mm3 (150-400); RED BLOOD CELL COUNT 3.18 M/mm3 (4.10-5.30); WHITE BLOOD CELL COUNT,WBC 8.07 K/mm3 (3.9-11.3)
[2023-06-05] MEDS ORDERED: Ibuprofen 600 MG Tab PO PRN (08:30)
[2023-06-05] MEDS: Simethicone 80 MG Tab.Chew PO PRN ×2 (17:04→20:45)
[2023-06-06 11:32] VITALS: BP 122/68; PULSE 70
== END 2023-06-06 10:40 | disposition home or self-care (01) | DRG 788 ==
LOC: JD.OB 05:34
PROVIDERS: ADMIT Obstetrics & Gynecology; ATTEND Obstetrics & Gynecology
PROC: 3E0334Z Introduction of Serum, Toxoid and Vaccine into Peripheral Vein, Percutaneous Approach (ICD-10-PCS; 2023-06-04)
PROC: 10D00Z1 Extraction of Products of Conception, Low, Open Approach (ICD-10-PCS; principal; 2023-06-04 08:00)
DX: O34.211 Maternal care for low transverse scar from previous cesarean delivery (principal); Z37.0 Single live birth; O26.893 Other specified pregnancy related conditions, third trimester; Z67.41 Type O blood, Rh negative; Z98.890 Other specified postprocedural states; Z3A.39 39 weeks gestation of pregnancy
CPT/HCPCS: 36415; 51701; 59025; 85025; 85027; 85461; 86592; 86850; 86900; 86901; 94762; A9270-GY; C1758; J0690; J1885; J2274; J2405; J2590; J2765; J2790; J3490; J7120; J7121